=== PATIENT | male | born 1965 | race Caucasian/White ===

== ENCOUNTER 2021-07-25 09:59 | Outpatient (CLI) | payer OTHER ==
--- NOTE | 2021-07-25 10:30 | XRAY Report ---
PROCEDURE: Chest 2 View X-Ray INDICATIONS: SOB TECHNIQUE: 2 view(s) of the chest. COMPARISON: None. FINDINGS: SUPPORT DEVICES: None. LUNGS/PLEURA: Linear density in the left lower lung zone, favored to represent plate atelectasis. The remaining lung zones well aerated. No pleural effusion or space-occupying pneumothorax. MEDIASTINUM: The cardiomediastinal silhouette is within normal limits. BONES/SOFT TISSUES: No acute abnormality. IMPRESSION: 1.Plate atelectasis in the left lower lung zone. Reviewed by: Isacc Peralta MD on 07/25/2021 10:28 AM [facility] Approved by: Isacc Peralta MD on 07/25/2021 10:28 AM [facility] Station ID: [id number]
== END 2021-07-25 10:00 | disposition home or self-care (01) ==
LOC: DI.N 09:59
PROVIDERS: ATTEND Nurse Practitioner Family
DX: R06.02 Shortness of breath (principal); J98.11 Atelectasis; R07.9 Chest pain, unspecified
CPT/HCPCS: 36415; 80053; 80061; 83721; 84443; 84484; 85025

== ENCOUNTER 2021-07-25 10:07 | Outpatient (CLI) | payer OTHER ==
[2021-07-25 12:03] LABS: BASOPHILS # (AUTO) 0.1 10^3/uL (0.0-0.1); BASOPHILS % (AUTO) 0.9 %; EOSINOPHILS # (AUTO) 0.1 10^3/uL (0.0-0.7); EOSINOPHILS % (AUTO) 1.3 %; HCT - HEMATOCRIT 48.1 % (42.0-52.0); LYMPHOCYTES # (AUTO) 1.9 10^3/uL (1.5-3.5); LYMPHOCYTES % (AUTO) 26.9 %; MEAN CORPUSCULAR HEMOGLOBIN 29.3 pg (27.0-31.0); MEAN CORPUSCULAR HGB CONC 33.3 g/dL (32.0-36.0); MEAN CORPUSCULAR VOLUME 87.9 fL (80.0-94.0); MEAN PLATELET VOLUME 9.5 fL (7.4-11.4); MONOCYTES # (AUTO) 0.6 10^3/uL (0.0-1.0); MONOCYTES % (AUTO) 8.9 %; NEUTROPHILS # (AUTO) 4.3 10^3/uL (1.5-6.6); NEUTROPHILS % (AUTO) 61.7 %; PLT - PLATELET COUNT 271 10^3/uL (130-450); RED BLOOD COUNT 5.47 10^6/uL (4.70-6.10); RED CELL DISTRIBUTION WIDTH 12.9 % (12.0-15.0)
[2021-07-25 12:34] LABS: THYROID STIMULATING HORMONE 1.27 uIU/mL (0.34-5.60)
[2021-07-25 12:41] LABS: ALBUMIN 3.9 g/dL (3.2-5.5); ALBUMIN/GLOBULIN RATIO 1.3 (1.0-2.2); ALKALINE PHOSPHATASE 55 IU/L (42-121); ALT ALANINE AMINOTRANSFERASE 23 IU/L (10-60); AST ASPARTATE AMINOTRANSFERASE 19 IU/L (10-42); BILIRUBIN,TOTAL 0.6 mg/dL (0.2-1.0); BUN - BLOOD UREA NITROGEN 15 mg/dL (6-20); CALCIUM 9.5 mg/dL (8.5-10.3); CARBON DIOXIDE - CO2 27 mmol/L (21-32); CHLORIDE 103 mmol/L (101-111); CHOL/HDL RATIO 3.3 (<5.0); CHOLESTEROL 153 mg/dL; CREATININE 1.1 mg/dL (0.6-1.2); GFR - MDRD 69 (>89); GLUCOSE 103 mg/dL (70-100); HDL CHOLESTEROL 46 mg/dL; LDL CHOLESTEROL,CALCULATED 73 mg/dL; LDL/HDL RATIO 1.6 (<3.6); SODIUM 139 mmol/L (135-145); TRIGLYCERIDES 168 mg/dL; VLDL CHOLESTEROL 34 mg/dL
== END 2021-07-25 10:08 | disposition home or self-care (01) ==
LOC: LAB.N 10:07
PROVIDERS: ATTEND Nurse Practitioner Family
DX: R07.9 Chest pain, unspecified (principal)
CPT/HCPCS: 36415; 80053; 80061; 83721; 84443; 84484; 85025

== ENCOUNTER 2022-04-17 14:45 | Outpatient (CLI) | payer OTHER | END 2022-04-17 23:59 | disposition critical access hospital (66) | LOC: EMS 14:45 | DX: R05.9 Cough, unspecified (principal); R07.81 Pleurodynia; R06.82 Tachypnea, not elsewhere classified | CPT/HCPCS: A0425; A0427 ==

== ENCOUNTER 2022-04-17 14:58 | Emergency (ER) | payer OTHER ==
--- NOTE | 2022-04-17 15:02 | ED Physician Documentation ---
PD HPI URI - Stated complaint Stated Complaint: COUGH - History obtained from History obtained from: Patient - History of Present Illness Timing - onset: Today (much worse today, with cough and wheezing.), Yesterday Timing duration: Days (2) Timing details: Abrupt onset, Still present Associated symptoms: Fever, Chills, Nasal congestion, Productive cough, Dyspnea. No: Sore throat, Hemoptysis, NVD Contributing factors: COPD / asthma (has had asthma in the past with occasional albuterol use. Had used it some at home earlier without improvement.). No: Sick contact, Immunocompromised Improves by: MDI/nebulizer (mildly). No: Rest, Medication Worsened by: Activity, Other (coughing) Similar symptoms before: Diagnosis (has had wheezing with URIs in the past.) Recently seen: Not recently seen Review of Systems Constitutional: reports: Fever, Chills, Myalgias Nose: reports: Rhinorrhea / runny nose, Congestion Throat: denies: Sore throat Cardiac: reports: Palpitations. denies: Chest pain / pressure Respiratory: reports: Dyspnea, Cough, Wheezing GI: denies: Abdominal Pain, Vomiting, Diarrhea Skin: denies: Rash, Lesions Musculoskeletal: denies: Neck pain, Back pain PD PAST MEDICAL HISTORY - Past Medical History Cardiovascular: None Respiratory: Asthma Neuro: None Endocrine/Autoimmune: None - Present Medications Home Medications: Ambulatory Orders Medication Instructions Recorded Confirmed Albuterol Sulf [Ventolin Hfa 2 - 3 puffs INH Q4HR PRN #1 each 04/17/22 Inhaler] Benzonatate [Tessalon] 100 mg PO TID PRN #20 cap 04/17/22 dexAMETHasone [Decadron] 4 mg PO DAILY #7 tablet 04/17/22 - Allergies Allergies/Adverse Reactions: Allergies Allergy/AdvReac Type Severity Reaction Status Date / Time No Known Drug Allergies Allergy Verified 04/17/22 15:19 - Living Situation Living Arrangement: reports: At home - Social History Does the pt smoke?: No Does the pt drink ETOH?: No Does the pt have substance abuse?: No PD ED PE NORMAL - Vitals Vital signs reviewed: Yes - General General: Alert and oriented X 3, Well developed/nourished - Neck Neck: Supple, no meningeal sign, No adenopathy - Cardiac Cardiac: No murmur. No: RRR (tachycardic) - Respiratory Respiratory: No: Clear bilaterally (he was working with partial sentence dyspnea, abd excursions, and noted wheezing. Most comfortable sitting up and forward. Audible wheezing noted as well. ) - Abdomen Abdomen: Soft, Non tender - Back Back: No CVA TTP - Derm Derm: Warm and dry. No: Normal color (somewhat pale. ) - Extremities Extremities: Normal ROM s pain, No edema, No calf tenderness / cord - Neuro Neuro: Alert and oriented X 3, No motor deficit, No sensory deficit, Other (partial sentence dyspnea. ) Results - Vitals Vitals: Oxygen O2 Source Room air - Labs Labs: Laboratory Tests 04/17/22 04/17/22 04/17/22 15:34 15:34 15:34 WBC 7.2 RBC 5.18 Hgb 15.0 Hct 46.6 MCV 90.0 MCH 29.0 MCHC 32.2 RDW 13.2 Plt Count 219 MPV 9.0 Neut # (Auto) 4.9 Lymph # (Auto) 1.3 L [place] # (Auto) 0.8 Eos # (Auto) 0.3 Baso # (Auto) 0.1 Absolute Nucleated RBC 0.00 Nucleated RBC % 0.0 Sodium 140 Potassium 4.0 Chloride 104 Carbon Dioxide 29 Anion Gap 7.0 BUN 13 Creatinine 1.1 Estimated GFR (MDRD) 69 L Glucose 132 H Calcium 9.2 Magnesium 2.2 Total Bilirubin 0.5 AST 38 ALT 41 Alkaline Phosphatase 54 B-Natriuretic Peptide 65 Total Protein 7.3 Albumin 4.1 Globulin 3.2 Albumin/Globulin Ratio 1.3 Lipase 29 Nasal Adenovirus (PCR) Nasal B. parapertussis DNA (PCR) Nasal Coronavir 229E PCR Nasal Coronavir HKU1 PCR Nasal Coronavir NL63 PCR Nasal Coronavir OC43 PCR Nasal Enterovir/Rhinovir PCR Nasal Influenza B PCR Nasal Influenza A PCR Nasal Parainfluen 1 PCR Nasal Parainfluen 2 PCR Nasal Parainfluen 3 PCR Nasal Parainfluen 4 PCR Nasal RSV (PCR) Nasal B.pertussis DNA PCR Nasal C.pneumoniae (PCR) Ronald Human Metapneumo PCR Nasal M.pneumoniae (PCR) Nasal SARS-CoV-2 (PCR) 04/17/22 04/17/22 17:00 17:53 WBC RBC Hgb Hct MCV MCH MCHC RDW Plt Count MPV Neut # (Auto) Lymph # (Auto) [place] # (Auto) Eos # (Auto) Baso # (Auto) Absolute Nucleated RBC Nucleated RBC % Sodium Potassium Chloride Carbon Dioxide Anion Gap BUN Creatinine Estimated GFR (MDRD) Glucose Calcium Magnesium Total Bilirubin AST ALT Alkaline Phosphatase B-Natriuretic Peptide 70 Total Protein Albumin Globulin Albumin/Globulin Ratio Lipase Nasal Adenovirus (PCR) NOT DETECTED Nasal B. parapertussis DNA (PCR) NOT DETECTED Nasal Coronavir 229E PCR NOT DETECTED Nasal Coronavir HKU1 PCR NOT DETECTED Nasal Coronavir NL63 PCR NOT DETECTED Nasal Coronavir OC43 PCR NOT DETECTED Nasal Enterovir/Rhinovir PCR NOT DETECTED Nasal Influenza B PCR NOT DETECTED Nasal Influenza A PCR NOT DETECTED Nasal Parainfluen 1 PCR NOT DETECTED Nasal Parainfluen 2 PCR NOT DETECTED Nasal Parainfluen 3 PCR NOT DETECTED Nasal Parainfluen 4 PCR NOT DETECTED Nasal RSV (PCR) DETECTED A Nasal B.pertussis DNA PCR NOT DETECTED Nasal C.pneumoniae (PCR) NOT DETECTED Ronald Human Metapneumo PCR NOT DETECTED Nasal M.pneumoniae (PCR) NOT DETECTED Nasal SARS-CoV-2 (PCR) NOT DETECTED - Rads (name of study) chest xray Radiology: Prelim report reviewed (mild bibasilar coarsening, c/w dependent edema versus developing pneumonia. ), See rad report PD MEDICAL DECISION MAKING - ED course Complexity details: reviewed results (he improved with several duonebs/nebs. Subsequently feeling able to head home. ), re-evaluated patient (The patient did have considerable wheezing and work of breathing on presentation. He had a stepwise improvement with nebulizers and also steroids. He is able to now be relaxed and lying comfortably. Sats of 93% on room air. Still has expiratory wheezing.), considered differential (only ill for 2 days with wheezing and wet cough, seems likely RSV, but he does have prior episodes of asthma, so may account for more wheezing than expected for adult rSV. ), d/w patient ED course: I was still worried about his breathing, though he was much more comfortable and lying relaxed, but still wheezing c/w RSV. No work of breathing now. I did witness him leaving from out in lobby shortly later as my shift ended and he was eating chips and walking around okay. [place] better about it then. Departure - Departure Disposition: 01 Home, Self Care Clinical Impression: Wheezing, Upper respiratory infection, RSV bronchiolitis Dyspnea Qualifiers: Dyspnea type: shortness of breath Qualified Code(s): R06.02 - Shortness of breath Condition: Stable Record reviewed to determine appropriate education?: Yes Instructions: ED URI Viral W Wheezing Prescriptions: Albuterol Sulf [Ventolin Hfa Inhaler] 2 - 3 puffs INH Q4HR PRN #1 each PRN Reason: Shortness Of Air/Wheezing dexAMETHasone [Decadron] 4 mg PO DAILY #7 tablet Benzonatate [Tessalon] 100 mg PO TID PRN #20 cap PRN Reason: Cough Comments: You did have considerable wheezing and coughing with your trouble breathing. It sounds likely to be a viral respiratory illness. Your chest x-ray does not show a bacterial appearing pattern such as pneumonia. At this point I would have you use albuterol inhaler 2 to 3 puffs 4 times daily for the next several days to a week. Also Decadron steroid for inflammation of the airways daily for the next week. Add benzonatate/Tessalon for cough as needed. Tylenol if needed for fevers. Minimal activity over the next few days. See how well you improve over the next few days presuming a viral illness. Return if worsening. I sent your prescriptions to the [facility] pharmacy. Discharge Date/Time: 04/17/22 19:26
[2022-04-17] MEDS ORDERED: DEXAMETHASONE 10 MG/ML VIAL IVP STA (15:25)
[2022-04-17 15:41] LABS: BASOPHILS # (AUTO) 0.1 10^3/uL (0.0-0.1); BASOPHILS % (AUTO) 0.7 %; EOSINOPHILS # (AUTO) 0.3 10^3/uL (0.0-0.7); EOSINOPHILS % (AUTO) 3.6 %; HCT - HEMATOCRIT 46.6 % (42.0-52.0); LYMPHOCYTES # (AUTO) 1.3 10^3/uL (1.5-3.5); LYMPHOCYTES % (AUTO) 17.5 %; MEAN CORPUSCULAR HGB CONC 32.2 g/dL (32.0-36.0); MONOCYTES # (AUTO) 0.8 10^3/uL (0.0-1.0); MONOCYTES % (AUTO) 10.8 %; NEUTROPHILS # (AUTO) 4.9 10^3/uL (1.5-6.6); NEUTROPHILS % (AUTO) 67.1 %; PLT - PLATELET COUNT 219 10^3/uL (130-450); RED BLOOD COUNT 5.18 10^6/uL (4.70-6.10); RED CELL DISTRIBUTION WIDTH 13.2 % (12.0-15.0); WHITE BLOOD COUNT 7.2 x10^3/uL (4.8-10.8)
[2022-04-17 15:55] LABS: ALBUMIN 4.1 g/dL (3.2-5.5); ALBUMIN/GLOBULIN RATIO 1.3 (1.0-2.2); BILIRUBIN,TOTAL 0.5 mg/dL (0.2-1.0); CALCIUM 9.2 mg/dL (8.5-10.3); CREATININE 1.1 mg/dL (0.6-1.2); MAGNESIUM 2.2 mg/dL (1.7-2.8); TOTAL PROTEIN 7.3 g/dL (6.7-8.2)
[2022-04-17] MEDS: IPRATROPIUM/ALBUTEROL 3 ML NEB INH STA ×2 (15:57→16:55)
[2022-04-17] MEDS ORDERED: ALBUTEROL NEB 2.5 MG/3 ML INH STA ×2 (16:38→18:25)
[2022-04-17] MEDS ORDERED: BUDESONIDE 0.5 MG/2 ML NEB INH STA (16:38)
--- NOTE | 2022-04-17 16:44 | XRAY Report ---
PROCEDURE: Chest 1 View X-Ray INDICATIONS: cough/dyspnea TECHNIQUE: One view of the chest was acquired. COMPARISON: Chest x-ray 07/25/2021 FINDINGS: Surgical changes and devices: None. Lungs and pleura: No pleural effusions or pneumothorax. Lungs are clear. Mediastinum: Mediastinal contours appear normal. Heart size is mildly enlarged. Bones and chest wall: No suspicious bony lesions. Overlying soft tissues appear unremarkable. IMPRESSION: Mild bibasilar coarsening. This could represent dependent edema versus developing pneumonia. Reviewed by: Misty Gan MD on 04/17/2022 4:43 PM PST Approved by: Misty Gan MD on 04/17/2022 4:43 PM PST Station ID: [id number]
[2022-04-17] MEDS ORDERED: ALBUTEROL NEB 2.5 MG/3 ML INH ONE (16:53)
[2022-04-17] MEDS ORDERED: KETOROLAC 15 MG/ML VIAL IVP STA (17:49)
[2022-04-17] MEDS ORDERED: BENZONATATE 100 MG CAPSULE PO STA (17:49)
[2022-04-17 19:06] LABS: B. PARAPERTUSSIS- RESP PCR PAN NOT DETECTED; B. PERTUSSIS- RESP PCR PANEL NOT DETECTED; C. PNEUMONIAE- RESP PCR PANEL NOT DETECTED; CORONAVIRUS 229E-RESP PCR NOT DETECTED; CORONAVIRUS HKU1-RESP PCR NOT DETECTED; CORONAVIRUS NL63-RESP PCR NOT DETECTED; CORONAVIRUS OC43-RESP PCR NOT DETECTED; HUMAN METAPNEUMOVIRUS NOT DETECTED; INFLUENZA A- RESP PCR PANEL NOT DETECTED; INFLUENZA B - RESP PCR PANEL NOT DETECTED; M. PNEUMONIAE- RESP PCR PANEL NOT DETECTED; PARAINFLUENZA VIRUS 1 NOT DETECTED; PARAINFLUENZA VIRUS 2 NOT DETECTED; PARAINFLUENZA VIRUS 3 NOT DETECTED; PARAINFLUENZA VIRUS 4 NOT DETECTED; RHINOVIRUS/ENTEROVIRUS NOT DETECTED; RSV- RESP PCR PANEL DETECTED; SARS-CoV-2 -RESP PCR PANEL NOT DETECTED
[2022-04-17 19:30] VITALS: BP 120/72
== END 2022-04-17 19:26 | disposition home or self-care (01) ==
LOC: EDUNIT# → ED 14:58
DX: J20.5 Acute bronchitis due to respiratory syncytial virus (principal); J06.9 Acute upper respiratory infection, unspecified
CPT/HCPCS: 36415; 71045; 80053; 83690; 83735; 83880; 85025; 87633; 94640; 96374; 96375; 99283; 99285; A9270; J7626

== ENCOUNTER 2022-10-19 07:35 | Emergency (ER) | payer OTHER ==
--- NOTE | 2022-10-19 07:42 | ED Physician Documentation ---
PD HPI DYSPNEA - Chief complaint Chief Complaint: Resp - History obtained from History obtained from: Patient - History of Present Illness Timing - onset: How many days ago (few) Timing - onset during: Light activity Timing - duration: Days (few) Timing - details: Gradual onset, Still present Inciting event(s): URI (has had cough and wheezing. Went to Urgent Care and given Rx for Albuterol MDI. It is helping some but needing it often.). No: Out of meds Improved by: Inhaler/neb, Rest Worsened by: Exertion, Coughing. No: Laying flat Associated symptoms: Cough, Wheezing. No: Fever, Hemoptysis, Bilateral edema Similar symptoms before: Diagnosis (had similar symptoms last April 2022 with RSV infection. He states some intermittent asthma. Does not have regular wheezing when feeling well.) Recently seen: Clinic (walk in couple days ago.) Review of Systems Constitutional: reports: Myalgias, Fatigue (for few days). denies: Fever, Chills Nose: reports: Congestion. denies: Rhinorrhea / runny nose Throat: reports: Sore throat (from coughing) Cardiac: denies: Chest pain / pressure, Palpitations, Pedal edema, Calf pain Respiratory: reports: Dyspnea, Cough, Wheezing GI: reports: Constipation. denies: Abdominal Pain, Abdominal Swelling (he is not noting his abd perrin than usual.), Nausea, Vomiting, Diarrhea PD PAST MEDICAL HISTORY - Past Medical History Cardiovascular: None (denies history of CAD/CHF.) Respiratory: Asthma Neuro: None Endocrine/Autoimmune: None - Present Medications Home Medications: Ambulatory Orders Medication Instructions Recorded Confirmed Albuterol Sulf [Ventolin Hfa 2 - 3 puffs INH Q4HR PRN #1 each 04/17/22 Inhaler] Benzonatate [Tessalon] 100 mg PO TID PRN #20 cap 04/17/22 dexAMETHasone [Decadron] 4 mg PO DAILY #7 tablet 04/17/22 Albuterol Sulf [Ventolin Hfa 2 - 3 puffs INH Q4HR PRN #1 each 10/19/22 Inhaler] Benzonatate [Tessalon] 100 mg PO TID PRN #20 cap 10/19/22 Docusate Sodium 250Mg Capsule 250 mg PO DAILY PRN #30 cap 10/19/22 [Colace 250Mg Capsule] dexAMETHasone [Decadron] 4 mg PO DAILY #5 tablet 10/19/22 - Allergies Allergies/Adverse Reactions: Allergies Allergy/AdvReac Type Severity Reaction Status Date / Time No Known Drug Allergies Allergy Verified 04/17/22 15:19 - Social History Does the pt smoke?: No Does the pt drink ETOH?: No Does the pt have substance abuse?: No PD ED PE NORMAL - Vitals Vital signs reviewed: Yes - General General: Alert and oriented X 3, No acute distress, Well developed/nourished - HEENT HEENT: Ears normal, Moist mucous membranes, Pharynx benign - Neck Neck: Supple, no meningeal sign, No adenopathy, No JVD - Cardiac Cardiac: RRR, No murmur - Respiratory Respiratory: No: Clear bilaterally (no coarse sounds. Has exp wheezing noted diffusely. ) - Abdomen Abdomen: Soft, Non tender, Other (distended with fullness. Noted umbilical hernia that is soft/reducible. Air sounds to percussion. No dullness noted. ) - Male Male : Deferred - Back Back: No CVA TTP - Derm Derm: Normal color, Warm and dry - Extremities Extremities: No calf tenderness / cord, Other (minimal pitting edema around ankles. ) - Neuro Neuro: Alert and oriented X 3, No motor deficit, Normal speech Results - Vitals Vitals: Vital Signs - 24 hr 10/19/22 10/19/22 10/19/22 07:36 08:22 08:33 Temperature 98 C H Heart Rate 75 76 74 Respiratory 20 19 17 Rate Blood Pressure 110/84 H 151/93 H O2 Saturation 99 94 Oxygen O2 Source Room air PD Medical Decision Making - ED course Complexity details: considered differential (Presenting complaint is cough, malaise, some congestion and wheezing. He does have expiratory wheezes. Some improved with recent inhaler but history of asthma type symptoms with prior URIs. Can add steroids and Tessalon. He does have some abdominal fullness and distention but not pain/tender. ), d/w patient Departure - Departure Disposition: 01 Home, Self Care Clinical Impression: Cough, Wheezing Condition: Stable Record reviewed to determine appropriate education?: Yes Instructions: ED Bronchitis Asthmatic Prescriptions: Albuterol Sulf [Ventolin Hfa Inhaler] 2 - 3 puffs INH Q4HR PRN #1 each PRN Reason: Shortness Of Air/Wheezing Docusate Sodium 250Mg Capsule [Colace 250Mg Capsule] 250 mg PO DAILY PRN #30 cap PRN Reason: Constipation dexAMETHasone [Decadron] 4 mg PO DAILY #5 tablet Benzonatate [Tessalon] 100 mg PO TID PRN #20 cap PRN Reason: Cough Comments: I would have you continue the albuterol inhaler 2 to 3 puffs with the spacer 4 times daily and extra times if needed. We can add Decadron steroid for i nflammation of the airways and benzonatate to help with cough. This is the combination prescribed last April when you had the RSV. Your stomach does seem to have some fullness but its not tender. There may be extra air through the intestine because of the breathing problems. Otherwise consider maybe a stool softener over the next several days or so case there is just extra stool backup. I would anticipate improvement in your breathing and cough over the next few days and hopefully a fair amount better through the day today. I wrote a work note for you for today and tomorrow. Recheck if worsening symptoms. I sent prescriptions as noted above as well as another inhaler in case to the [facility] pharmacy. Forms: Activity restrictions Discharge Date/Time: 10/19/22 08:33
[2022-10-19] MEDS ORDERED: DEXAMETHASONE 10 MG/ML VIAL PO STA (07:50)
[2022-10-19] MEDS ORDERED: ALBUTEROL NEB 2.5 MG/3 ML INH STA (07:50)
[2022-10-19] MEDS ORDERED: guaiFENesin 100 MG/5 ML UDC PO STA (07:50)
[2022-10-19] MEDS ORDERED: CHERRY SYRUP 10 ML UDC PO ONE (07:50)
[2022-10-19] MEDS ORDERED: BENZONATATE 100 MG CAPSULE PO STA (07:50)
[2022-10-19 08:36] VITALS: BP 151/93
== END 2022-10-19 08:33 | disposition home or self-care (01) ==
LOC: ED 07:35
DX: J45.909 Unspecified asthma, uncomplicated (principal); R05.9 Cough, unspecified
CPT/HCPCS: 94640; 94664; 99283; 99284; A9270

== ENCOUNTER 2022-11-02 09:00 | Outpatient (CLI) | payer OTHER ==
--- NOTE | 2022-11-02 12:38 | XRAY Report ---
PROCEDURE: Chest 2 View X-Ray INDICATIONS: BRONCHITIS ACUTE TECHNIQUE: 2 views of the chest were acquired. COMPARISON: 04/17/2022 FINDINGS: Surgical changes and devices: None. Lungs and pleura: No pleural effusions or pneumothorax. Lungs are clear. Mediastinum: Mediastinal contours appear normal. Heart size is normal. Bones and chest wall: No suspicious bony lesions. Overlying soft tissues appear unremarkable. IMPRESSION: No acute cardiopulmonary process. Reviewed by: Dung Barrett MD on 11/02/2022 12:37 PM PDT Approved by: Dung Barrett MD on 11/02/2022 12:37 PM PDT Station ID: [id number]
== END 2022-11-02 09:15 | disposition home or self-care (01) ==
LOC: DI.N 09:00
PROVIDERS: ATTEND Physician Assistant Medical
DX: J20.9 Acute bronchitis, unspecified (principal)

== ENCOUNTER 2023-01-01 07:54 | Emergency (ER) | payer OTHER ==
[2023-01-01 08:04] VITALS: BP 152/78
[2023-01-01] MEDS ORDERED: IPRATROPIUM/ALBUTEROL 3 ML NEB INH STA (08:24)
--- NOTE | 2023-01-01 08:29 | ED Physician Documentation ---
PD HPI DYSPNEA - Stated complaint Stated Complaint: SOA - Chief complaint Chief Complaint: Resp - History obtained from History obtained from: Patient - Additional information Additional information: Patient is a 57-year-old presenting for evaluation of cough and feeling short of air since this morning. Patient reports having a slight cough yesterday. 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 This morning he tried his inhaler but did not feel like it was helping him as much as it usually does. Reports a nonproductive cough. No fever. No congestion. Denies tobacco use. Denies chest pain. No recent travel or immobilization. No leg swelling or pain. Review of Systems Constitutional: denies: Fever Cardiac: denies: Chest pain / pressure Respiratory: reports: Dyspnea, Cough GI: denies: Abdominal Pain, Vomiting Musculoskeletal: denies: Extremity swelling PD PAST MEDICAL HISTORY - Past Medical History Cardiovascular: None (denies history of CAD/CHF.) Respiratory: Asthma Neuro: None Endocrine/Autoimmune: None - Present Medications Home Medications: Ambulatory Orders Medication Instructions Recorded Confirmed Albuterol Sulf [Ventolin Hfa 2 - 3 puffs INH Q4HR PRN #1 each 04/17/22 Inhaler] Benzonatate [Tessalon] 100 mg PO TID PRN #20 cap 04/17/22 dexAMETHasone [Decadron] 4 mg PO DAILY #7 tablet 04/17/22 Albuterol Sulf [Ventolin Hfa 2 - 3 puffs INH Q4HR PRN #1 each 10/19/22 Inhaler] Benzonatate [Tessalon] 100 mg PO TID PRN #20 cap 10/19/22 Docusate Sodium 250Mg Capsule 250 mg PO DAILY PRN #30 cap 10/19/22 [Colace 250Mg Capsule] dexAMETHasone [Decadron] 4 mg PO DAILY #5 tablet 10/19/22 predniSONE [Deltasone] 60 mg PO DAILY 4 Days #12 tablet 01/01/23 - Allergies Allergies/Adverse Reactions: Allergies Allergy/AdvReac Type Severity Reaction Status Date / Time No Known Drug Allergies Allergy Verified 01/01/23 08:04 - Social History Does the pt smoke?: No Does the pt drink ETOH?: No Does the pt have substance abuse?: No PD ED PE NORMAL - General General: Alert and oriented X 3, No acute distress, Well developed/nourished - HEENT HEENT: Atraumatic - Neck Neck: Supple, no meningeal sign - Cardiac Cardiac: RRR, No murmur - Respiratory Respiratory: No respiratory distress, Other (Mild expiratory wheezing bilaterally) - Abdomen Abdomen: Soft, Non tender - Derm Derm: Warm and dry - Extremities Extremities: No edema, No calf tenderness / cord - Neuro Neuro: Normal speech Results - Vitals Vitals: Vital Signs - 24 hr 01/01/23 01/01/23 08:01 08:38 Temperature 37.0 C Heart Rate 81 82 Respiratory 20 14 Rate Blood Pressure 152/78 H O2 Saturation 95 Oxygen O2 Source Room air PD Medical Decision Making - ED course ED course: Pt with history of reactive airway/asthma presenting for evaluation of feeling SOA. Wheezing noted on exam. Chest XR without signs of pneumonia. Better with 1 neb. Normal O2 sat. Started on prednisone. No CP. No known risk factors for PE. Pt counseled on treatment plan, need for follow up and concerning symptoms to return for. 0859 - Reports feeling much better after breathing treatment. Departure - Departure Disposition: 01 Home, Self Care Clinical Impression: Cough, Wheezing Condition: Stable Instructions: ED Bronchitis Asthmatic Prescriptions: predniSONE [Deltasone] 60 mg PO DAILY 4 Days #12 tablet Comments: I am starting you on a steroid called prednisone to help with your breathing. Please continue with your albuterol inhaler 2 puffs as needed 4 times a day For wheezing or shortness of air. I would recommend close follow-up with your primary care doctor. I would expect your symptoms to get better with your breathing over the course of the next 1 to 2 days as you are on the steroids. Please return to the emergency department if you develop any worsening symptoms. I have sent your prescriptions to [facility]. Forms: PCP List, Activity restrictions Discharge Date/Time: 01/01/23 10:18
--- NOTE | 2023-01-01 08:59 | XRAY Report ---
PROCEDURE: Chest 1 View X-Ray INDICATIONS: SOA TECHNIQUE: One view of the chest was acquired. COMPARISON: 11/02/2022 FINDINGS: Surgical changes and devices: None. Lungs and pleura: No pleural effusions or pneumothorax. Lungs are clear. Mediastinum: Mediastinal contours appear normal. Heart size is normal. Bones and chest wall: No suspicious bony lesions. Overlying soft tissues appear unremarkable. IMPRESSION: No acute cardiopulmonary process. Reviewed by: Patricia Romo MD on 01/01/2023 8:58 AM PDT Approved by: Patricia Romo MD on 01/01/2023 8:58 AM PDT Station ID: [id number]
[2023-01-01] MEDS ORDERED: predniSONE 20 MG TABLET PO STA (09:58)
== END 2023-01-01 10:18 | disposition home or self-care (01) ==
LOC: ED 07:54
DX: R05.9 Cough, unspecified (principal); R06.2 Wheezing
CPT/HCPCS: 71045; 94640; 99283; 99284; J7512

== ENCOUNTER 2023-08-10 08:52 | Outpatient (CLI) | payer OTHER ==
--- NOTE | 2023-08-10 12:03 | XRAY Report ---
PROCEDURE: Hand 1-2V BL INDICATIONS: HAND PAIN, RIGHT TECHNIQUE: 2 views of the hand(s) acquired. COMPARISON: None. FINDINGS: Bones: No fractures or dislocations mild degenerative changes are present at the first CMC joints bi laterally.. No suspicious bony lesions. Soft tissues: No suspicious soft tissue calcifications or masses. IMPRESSION: No acute bony abnormality. If pain persists with conservative management, consider repeat radiographs in 10-14 days or cross-sectional imaging. 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 No findings to suggest erosive arthritis. Reviewed by: Anisa Antoine MD on 08/10/2023 12:01 PM [facility] Approved by: Anisa Antoine MD on 08/10/2023 12:01 PM PST Station ID: [id number]
== END 2023-08-10 23:59 | disposition home or self-care (01) ==
LOC: DI.N 08:52
PROVIDERS: ATTEND Family Medicine
DX: M18.0 Bilateral primary osteoarthritis of first carpometacarpal joints (principal)

== ENCOUNTER 2023-08-14 05:57 | Emergency (ER) | payer OTHER ==
[2023-08-14 06:37] VITALS: BP 120/56; O2SAT 97
--- NOTE | 2023-08-14 07:39 | ED Physician Documentation ---
PD HPI URI - Stated complaint Stated Complaint: COUGH - Chief complaint Chief Complaint: Resp - History obtained from History obtained from: Patient - Additional information Additional information: Patient is a 58-year-old male with a history of asthma presenting for evaluation of nonproductive cough, sneezing, nasal congestion starting yesterday. Patient states he did not feel like he could go to work today. He also is requesting a refill of his inhaler. Denies fever, sore throat, chest pain, shortness of air, abdominal pain. No leg swelling or pain. Review of Systems Constitutional: denies: Fever Nose: reports: Congestion Throat: denies: Sore throat Cardiac: denies: Chest pain / pressure Respiratory: reports: Cough. denies: Dyspnea GI: denies: Abdominal Pain, Vomiting, Diarrhea Musculoskeletal: denies: Extremity swelling PD PAST MEDICAL HISTORY - Past Medical History Past Medical History: Yes Cardiovascular: Hypertension Respiratory: Asthma Neuro: None Endocrine/Autoimmune: None - Past Surgical History Past Surgical History: No - Present Medications Home Medications: Ambulatory Orders Medication Instructions Recorded Confirmed Albuterol Sulf [Ventolin Hfa 1 - 2 puffs INH Q4HR PRN #1 each 08/14/23 Inhaler] Lisinopril [Zestril] 10 mg PO DAILY 08/14/23 08/14/23 - Allergies Allergies/Adverse Reactions: Allergies Allergy/AdvReac Type Severity Reaction Status Date / Time No Known Drug Allergies Allergy Verified 08/14/23 06:33 - Social History Does the pt smoke?: No Smoking Status: Never smoker Does the pt drink ETOH?: No Does the pt have substance abuse?: No PD ED PE NORMAL - General General: Alert and oriented X 3, No acute distress, Well developed/nourished - HEENT HEENT: Atraumatic, Moist mucous membranes, Pharynx benign - Neck Neck: Supple, no meningeal sign - Cardiac Cardiac: RRR, Strong equal pulses - Respiratory Respiratory: No respiratory distress, Clear bilaterally - Abdomen Abdomen: Soft, Non tender - Derm Derm: Warm and dry - Neuro Neuro: Normal speech Results - Vitals Vitals: Vital Signs - 24 hr 08/14/23 06:28 Temperature 37 C Heart Rate 71 Respiratory 17 Rate Blood Pressure 120/56 L O2 Saturation 97 Oxygen O2 Source Room air - Labs Labs: Laboratory Tests 08/14/23 06:26 Nasal Adenovirus (PCR) NOT DETECTED Nasal B. parapertussis DNA (PCR) NOT DETECTED Nasal Coronavir 229E PCR NOT DETECTED Nasal Coronavir HKU1 PCR DETECTED A Nasal Coronavir NL63 PCR NOT DETECTED Nasal Coronavir OC43 PCR NOT DETECTED Nasal Enterovir/Rhinovir PCR NOT DETECTED Nasal Influenza B PCR NOT DETECTED Nasal Influenza A PCR NOT DETECTED Nasal Parainfluen 1 PCR NOT DETECTED Nasal Parainfluen 2 PCR NOT DETECTED Nasal Parainfluen 3 PCR NOT DETECTED Nasal Parainfluen 4 PCR NOT DETECTED Nasal RSV (PCR) NOT DETECTED Nasal B.pertussis DNA PCR NOT DETECTED Nasal C.pneumoniae (PCR) NOT DETECTED Ronald Human Metapneumo PCR NOT DETECTED Nasal M.pneumoniae (PCR) NOT DETECTED Nasal SARS-CoV-2 (PCR) NOT DETECTED PD Medical Decision Making - ED course ED course: Pt with cough/congestion x 1 day. Has history of asthma and out of inhaler. No wheezing today. VSS. Respiratory swab pending. Well appearing. Discussed continued supportive care and concerning symptoms to return for. Departure - Departure Disposition: 01 Home, Self Care Clinical Impression: Upper respiratory infection with cough and congestion Condition: Stable Instructions: ED Viral Syndrome Prescriptions: Albuterol Sulf [Ventolin Hfa Inhaler] 1 - 2 puffs INH Q4HR PRN #1 each PRN Reason: Shortness Of Air/Wheezing Comments: Your respiratory panel is pending. This will check for COVID, influenza, RSV and a number of other common cold viruses. We will notify you if it is positive for COVID. Otherwise you can check the patient portal for your results. You should quarantine from others until you know your COVID result. Please continue with acetaminophen or ibuprofen as needed for fevers and body aches, plenty of fluids/hydration and rest. Return to the ER with any worsening symptoms such as difficulty breathing or vomiting. Prescription for an albuterol inhaler has been sent to [facility]. Forms: PCP List, Activity restrictions Discharge Date/Time: 08/14/23 07:48
[2023-08-14 07:42] LABS: B. PARAPERTUSSIS- RESP PCR PAN NOT DETECTED; B. PERTUSSIS- RESP PCR PANEL NOT DETECTED; C. PNEUMONIAE- RESP PCR PANEL NOT DETECTED; CORONAVIRUS 229E-RESP PCR NOT DETECTED; CORONAVIRUS HKU1-RESP PCR DETECTED; CORONAVIRUS NL63-RESP PCR NOT DETECTED; CORONAVIRUS OC43-RESP PCR NOT DETECTED; HUMAN METAPNEUMOVIRUS NOT DETECTED; INFLUENZA A- RESP PCR PANEL NOT DETECTED; INFLUENZA B - RESP PCR PANEL NOT DETECTED; M. PNEUMONIAE- RESP PCR PANEL NOT DETECTED; PARAINFLUENZA VIRUS 1 NOT DETECTED; PARAINFLUENZA VIRUS 2 NOT DETECTED; PARAINFLUENZA VIRUS 3 NOT DETECTED; PARAINFLUENZA VIRUS 4 NOT DETECTED; RHINOVIRUS/ENTEROVIRUS NOT DETECTED; RSV- RESP PCR PANEL NOT DETECTED; SARS-CoV-2 -RESP PCR PANEL NOT DETECTED
== END 2023-08-14 07:48 | disposition home or self-care (01) ==
LOC: ED 05:57
DX: J06.9 Acute upper respiratory infection, unspecified (principal); I10 Essential (primary) hypertension; Z79.899 Other long term (current) drug therapy
CPT/HCPCS: 87633; 99283

== ENCOUNTER 2023-10-05 07:29 | Outpatient (CLI) | payer OTHER ==
[2023-10-05 11:59] LABS: BASOPHILS % (AUTO) 0.5 %; EOSINOPHILS # (AUTO) 0.1 10^3/uL (0.0-0.7); EOSINOPHILS % (AUTO) 1.6 %; HCT - HEMATOCRIT 46.1 % (42.0-52.0); HGB - HEMOGLOBIN 14.4 g/dL (14.0-18.0); LYMPHOCYTES # (AUTO) 1.7 10^3/uL (1.5-3.5); LYMPHOCYTES % (AUTO) 28.9 %; MEAN CORPUSCULAR HEMOGLOBIN 28.8 pg (27.0-31.0); MEAN CORPUSCULAR HGB CONC 31.2 g/dL (32.0-36.0); MEAN CORPUSCULAR VOLUME 92.2 fL (80.0-94.0); MEAN PLATELET VOLUME 9.8 fL (7.4-11.4); MONOCYTES # (AUTO) 0.6 10^3/uL (0.0-1.0); MONOCYTES % (AUTO) 10.7 %; NEUTROPHILS # (AUTO) 3.3 10^3/uL (1.5-6.6); PLT - PLATELET COUNT 237 10^3/uL (130-450); RED CELL DISTRIBUTION WIDTH 13.2 % (12.0-15.0); WHITE BLOOD COUNT 5.8 x10^3/uL (4.8-10.8)
[2023-10-05 12:00] LABS: ESTIMATED AVERAGE GLUCOSE 120 mg/dL (70-100); HEMOGLOBIN A1c% 5.8 % (4.27-6.07)
[2023-10-05 12:13] LABS: ALBUMIN 4.3 g/dL (3.2-5.5); ALBUMIN/GLOBULIN RATIO 1.6 (1.0-2.2); ALKALINE PHOSPHATASE 55 IU/L (42-121); ALT ALANINE AMINOTRANSFERASE 22 IU/L (10-60); AST ASPARTATE AMINOTRANSFERASE 17 IU/L (10-42); BILIRUBIN,TOTAL 0.4 mg/dL (0.2-1.0); BUN - BLOOD UREA NITROGEN 22 mg/dL (6-20); CALCIUM 10.1 mg/dL (8.5-10.3); CARBON DIOXIDE - CO2 30 mmol/L (21-32); CHLORIDE 105 mmol/L (101-111); CHOL/HDL RATIO 2.7 (<5.0); CHOLESTEROL 133 mg/dL; CREATININE 1.1 mg/dL (0.6-1.3); GFR - MDRD 68 (>89); GLUCOSE 102 mg/dL (74-104); HDL CHOLESTEROL 50 mg/dL; LDL CHOLESTEROL,CALCULATED 71 mg/dL; LDL/HDL RATIO 1.4 (<3.6); POTASSIUM 4.6 mmol/L (3.5-4.5); SODIUM 140 mmol/L (135-145); TRIGLYCERIDES 59 mg/dL (48-352); VLDL CHOLESTEROL 12 mg/dL
[2023-10-05 12:28] LABS: THYROID STIMULATING HORMONE 1.36 uIU/mL (0.34-5.60)
== END 2023-10-05 07:30 | disposition home or self-care (01) ==
LOC: LAB.N 07:29
PROVIDERS: ATTEND Nurse Practitioner Family
DX: I10 Essential (primary) hypertension (principal); E66.01 Morbid (severe) obesity due to excess calories; Z76.0 Encounter for issue of repeat prescription; Z12.11 Encounter for screening for malignant neoplasm of colon
CPT/HCPCS: 36415; 80053; 80061; 83036; 83721; 84153; 84443; 85025

== ENCOUNTER 2024-01-12 23:00 | Emergency (ER) | payer OTHER ==
--- NOTE | 2024-01-12 23:16 | ED Physician Documentation ---
PD HPI CHEST PAIN - Stated complaint Stated Complaint: CHEST PX - Chief complaint Chief Complaint: Cardiac - History obtained from History obtained from: Patient - Additional information Additional information: 58-year-old male with history of hypertension, asthma presents by private vehicle from home for left-sided chest pain. Patient states that sharp, constant, does not radiate. Happened at approximately 6 PM while he was sitting in his recreation room. Nothing seems to make it better or worse. Denies history of heart problems. No medications taken prior to arrival. Review of Systems Constitutional: denies: Fever, Chills Cardiac: reports: Chest pain / pressure. denies: Palpitations, Calf pain Respiratory: denies: Dyspnea, Cough, Wheezing GI: denies: Abdominal Pain, Nausea, Vomiting, Constipation, Diarrhea : denies: Dysuria, Frequency, Hesitancy Neurologic: denies: Generalized weakness, Focal weakness, Numbness PD PAST MEDICAL HISTORY - Past Medical History Past Medical History: Yes Cardiovascular: Hypertension Respiratory: Asthma Neuro: None Endocrine/Autoimmune: None - Past Surgical History Past Surgical History: No - Present Medications Home Medications: Ambulatory Orders Medication Instructions Recorded Confirmed Albuterol Sulf [Ventolin Hfa 1 - 2 puffs INH Q4HR PRN #1 each 08/14/23 Inhaler] Lisinopril [Zestril] 10 mg PO DAILY 08/14/23 08/14/23 - Allergies Allergies/Adverse Reactions: Allergies Allergy/AdvReac Type Severity Reaction Status Date / Time No Known Drug Allergies Allergy Verified 01/12/24 23:13 - Social History Does the pt smoke?: No Smoking Status: Never smoker Does the pt drink ETOH?: No Does the pt have substance abuse?: No - POLST Patient has POLST: No PD ED PE NORMAL - Vitals Vital signs reviewed: Yes - General General: Alert and oriented X 3, No acute distress, Well developed/nourished - Cardiac Cardiac: RRR, Strong equal pulses - Respiratory Respiratory: No respiratory distress, Clear bilaterally - Abdomen Abdomen: Soft, Non tender, Non distended - Back Back: No CVA TTP, No spinal TTP - Derm Derm: Normal color, Warm and dry, No rash - Extremities Extremities: No deformity, No tenderness to palpate, Normal ROM s pain, No edema - Neuro Neuro: Alert and oriented X 3, 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 Relevant findings are: Rate: Rate (enter#) (73) Rhythm: NSR Fowler: Normal Intervals: Normal NV QRS: Normal Ischemia: Normal ST segments - Labs Labs: Laboratory Tests 01/12/24 01/12/24 23:31 23:31 WBC 8.6 RBC 5.38 Hgb 15.7 Hct 48.5 MCV 90.1 MCH 29.2 MCHC 32.4 RDW 12.8 Plt Count 261 MPV 9.4 Neut # (Auto) 5.7 Lymph # (Auto) 2.0 [place] # (Auto) 0.7 Eos # (Auto) 0.1 Baso # (Auto) 0.0 Absolute Nucleated RBC 0.00 Nucleated RBC % 0.0 Sodium 140 Potassium 4.6 H Chloride 105 Carbon Dioxide 31 Anion Gap 4.0 L BUN 15 Creatinine 1.1 Estimated GFR (MDRD) 68 L Glucose 117 H Calcium 10.3 Total Bilirubin 0.4 AST 18 ALT 24 Alkaline Phosphatase 59 Troponin I High Sens 12.8 Total Protein 7.2 Albumin 4.3 Globulin 2.9 Albumin/Globulin Ratio 1.5 Lipase 22 PD Medical Decision Making - ED course Complexity details: reviewed results, re-evaluated patient, considered differential, d/w patient ED course: Well-appearing patient with chest pain since 6 PM. EKG normal sinus rhythm. Laboratory work and x-ray imaging ordered. Laboratory work reviewed, no acute abnormalities identified. Troponin normal, since patient's symptoms have been ongoing for 5 hours would expect troponins to have risen by now if they were going to be positive. Low suspicion for ACS based on normal EKG, normal troponin, normal chest x-ray. Patient informed of lab and imaging findings, he requested his nighttime nebulizer treatment, which was ordered prior to discharge. Patient counseled to follow-up with his primary care doctor. Departure - Departure Disposition: 01 Home, Self Care Clinical Impression: Chest pain Condition: Stable Instructions: ED Chest Pain Atypical Unkn Cause Comments: Your EKG, laboratory work, and chest x-ray imaging today did not show any signs of blockage or other other scary findings. Continue to take all of your other medications as prescribed. Follow-up with your primary care doctor. Forms: PCP List Discharge Date/Time: 01/13/24 01:15
[2024-01-12 23:41] LABS: BASOPHILS % (AUTO) 0.5 %; EOSINOPHILS # (AUTO) 0.1 10^3/uL (0.0-0.7); EOSINOPHILS % (AUTO) 1.6 %; HCT - HEMATOCRIT 48.5 % (42.0-52.0); HGB - HEMOGLOBIN 15.7 g/dL (14.0-18.0); LYMPHOCYTES % (AUTO) 23.1 %; MEAN CORPUSCULAR HEMOGLOBIN 29.2 pg (27.0-31.0); MEAN CORPUSCULAR HGB CONC 32.4 g/dL (32.0-36.0); MEAN CORPUSCULAR VOLUME 90.1 fL (80.0-94.0); MEAN PLATELET VOLUME 9.4 fL (7.4-11.4); MONOCYTES # (AUTO) 0.7 10^3/uL (0.0-1.0); MONOCYTES % (AUTO) 8.3 %; NEUTROPHILS # (AUTO) 5.7 10^3/uL (1.5-6.6); NEUTROPHILS % (AUTO) 66.2 %; PLT - PLATELET COUNT 261 10^3/uL (130-450); RED BLOOD COUNT 5.38 10^6/uL (4.70-6.10); RED CELL DISTRIBUTION WIDTH 12.8 % (12.0-15.0); WHITE BLOOD COUNT 8.6 x10^3/uL (4.8-10.8)
--- NOTE | 2024-01-13 00:05 | XRAY Report ---
PROCEDURE: Chest 1V INDICATIONS: Chest pain TECHNIQUE: One view of the chest was acquired. COMPARISON: None. FINDINGS: Surgical changes and devices: None. Lungs and pleura: No pleural effusions or pneumothorax. Lungs are clear. Mediastinum: Mediastinal contours appear normal. Heart size is normal. Bones and chest wall: No suspicious bony lesions. Overlying soft tissues appear unremarkable. IMPRESSION: No acute cardiopulmonary process. Reduced inspiratory volume, source of chest pain is not seen. Reviewed by: Chavo Escobar MD on 01/13/2024 12:04 AM PDT Approved by: Chavo Escobar MD on 01/13/2024 12:04 AM PDT Station ID: [id number]
[2024-01-13 00:22] LABS: TROPONIN I HIGH SENSITIVITY 12.8 ng/L (2.3-19.7)
[2024-01-13 00:23] LABS: ALBUMIN 4.3 g/dL (3.2-5.5); ALBUMIN/GLOBULIN RATIO 1.5 (1.0-2.2); BILIRUBIN,TOTAL 0.4 mg/dL (0.2-1.0); CALCIUM 10.3 mg/dL (8.5-10.3); CREATININE 1.1 mg/dL (0.6-1.3); POTASSIUM 4.6 mmol/L (3.5-4.5); TOTAL PROTEIN 7.2 g/dL (6.4-8.9)
[2024-01-13] MEDS: IPRATROPIUM/ALBUTEROL 3 ML NEB INH STA (01:02)
[2024-01-13 01:18] VITALS: BP 157/88; O2SAT 98
== END 2024-01-13 01:15 | disposition home or self-care (01) ==
LOC: ED 23:00
DX: R07.9 Chest pain, unspecified (principal); I10 Essential (primary) hypertension; Z79.899 Other long term (current) drug therapy
CPT/HCPCS: 36415; 80053; 83690; 84484; 85025; 93005; 94640; 94664; 99283; 99284

== ENCOUNTER 2024-01-26 15:43 | Emergency (ER) | payer OTHER ==
--- NOTE | 2024-01-26 15:56 | ED Physician Documentation ---
PD HPI HEENT - Stated complaint Stated Complaint: LT EAR PX - Chief complaint Chief Complaint: Heent - Additional information Additional information: 58-year-old male with history of hypertension, asthma appears to be developmentally delayed presents emergency department for left ear pain. Patient said that he started experiencing sudden onset left ear pain this morning and it feels very full with some decreased hearing. No recent illnesses no fevers or chills no nausea or vomiting full range of motion to jaw. PD PAST MEDICAL HISTORY - Past Medical History Past Medical History: Yes Cardiovascular: Hypertension Respiratory: Asthma Neuro: None Endocrine/Autoimmune: None - Past Surgical History Past Surgical History: No - Present Medications Home Medications: Ambulatory Orders Medication Instructions Recorded Confirmed Albuterol Sulf [Ventolin Hfa 1 - 2 puffs INH Q4HR PRN #1 each 08/14/23 Inhaler] Lisinopril [Zestril] 10 mg PO DAILY 08/14/23 08/14/23 Ofloxacin [Ofloxacin Otic drops] 10 ml LEFTEAR DAILY #10 ml 01/26/24 - Allergies Allergies/Adverse Reactions: Allergies Allergy/AdvReac Type Severity Reaction Status Date / Time No Known Drug Allergies Allergy Verified 01/26/24 15:46 - Social History Does the pt smoke?: No Smoking Status: Never smoker Does the pt drink ETOH?: No Does the pt have substance abuse?: No - POLST Patient has POLST: No PD ED PE NORMAL - Vitals Vital signs reviewed: Yes - General General: Alert and oriented X 3, No acute distress, Well developed/nourished - HEENT HEENT: Atraumatic, PERRL, EOMI PD ED PE EXPANDED - HEENT HEENT: Other (left TM impacted with cerumen) Results - Vitals Vitals: Vital Signs - 24 hr 01/26/24 01/26/24 15:46 17:10 Temperature 36.5 C 36.5 C Heart Rate 88 86 Respiratory 16 16 Rate Blood Pressure 145/77 H 138/72 H O2 Saturation 96 98 Oxygen O2 Source Room air PD Medical Decision Making - ED course ED course: 58-year-old male presents emergency department for onset of left ear pain that occurred this morning. On physical exam he appears to have a cerumen impaction of his left ear. Left ear was irrigated with hydroperoxide and normal saline a large amount of cerumen was removed without any complications or difficulty and patient reported significant alleviation of symptoms and pain afterwards. There is some mild irritation where the cerumen was removed I prescribed Ofloxacin drops for him to put in his left ear daily. Patient can follow-up with primary care provider as needed return precautions given to patient patient says he lives at home with his mom who could help him with eardrops all questions answered patient is safe for discharge at this time. Departure - Departure Disposition: Home, Self Care Clinical Impression: Cerumen impaction Instructions: Earwax Impacted, ED Earwax Removal Prescriptions: Ofloxacin [Ofloxacin Otic drops] 10 ml LEFTEAR DAILY #10 ml Comments: Thank you for trusting us with your care we have removed a very large amount of earwax from her left ear. Because we cause some irritation do not be surprised if you are slightly sore for the next couple days you can alternate between Tylenol ibuprofen for pain and discomfort. I sent a prescription of ofloxacin to preferred pharmacy You will do 10 drops in your left ear daily for the next 5 days. You already did that today he will start this tomorrow. Please come back in if your pain gets any worse or if you start to develop any fevers or chills or any other concerning emergent symptoms Forms: PCP List Discharge Date/Time: 01/26/24 17:00
[2024-01-26] MEDS: OFLOXACIN 0.3% OPHTH DROPS LEFTEAR STA (17:09)
[2024-01-26 17:17] VITALS: BP 138/72; O2SAT 98
== END 2024-01-26 17:00 | disposition home or self-care (01) ==
LOC: ED 15:43
DX: H61.22 Impacted cerumen, left ear (principal)
CPT/HCPCS: 69209; 99283; A9270